=== PATIENT | male | born 1940 | race Caucasian/White ===

== ENCOUNTER 2016-10-30 20:14 | Observation (INO) | payer OTHER, MEDICARE ==
[~2016-10-30] VITALS: Ht 165.1 cm; Wt 90.7 kg
--- NOTE | 2016-10-30 20:20 | NUR ---
PT TO TRIAGE WITH C/O MIDSTERNAL CHEST PAIN 5/10, LIGHTHEADEDNESS, UNABLE TO TAKE DEEP BREATHS SINCE 3PM. [facility] MD CHATA AT BEDSIDE FOR PT EVAL.
--- NOTE | 2016-10-30 20:26 | ED CARDIAC/CP/PALPITATIONS ---
History of Present Illness General Chief Complaint: Chest Pain Stated Complaint: CHEST PAIN, JAW PAIN X FEW HRS Source: patient, family Exam Limitations: no limitations Vital Signs & Intake/Output Vital Signs & Intake/Output Vital Signs Date Time Temp Pulse Resp B/P Pulse O2 O2 Flow FiO2 Ox Delivery Rate 10/30 2314 99.2 84 18 127/55 96 Room Air Room Air 10/30 2045 95 Room Air Room Air 10/30 2044 92 18 113/57 95 Room Air Room Air 10/31 2031 99.5 90 20 119/65 96 Room Air Allergies Coded Allergies: No Known Allergies (10/30/16) Reconcile Medications Amlodipine Besylate 2.5 MG TABLET 1 TAB PO DAILY BP (Reported) Aspirin (Ecotrin*) 81 MG TABLET.DR 1 TAB PO DAILY HEART/BLOOD (Reported) Atorvastatin Calcium 20 MG TABLET 1 TAB PO DAILY CHOLESTEROL (Reported) Metoprolol Tartrate 25 MG TABLET 1 TAB PO BID HEART/BP (Reported) Oxycodone HCl 10 MG TABLET 1 TAB PO BID PRN PAIN (Reported) Pantoprazole Sodium 40 MG TABLET.DR 1 TAB PO DAILY GI (Reported) Tamsulosin HCl 0.4 MG CAP.ER.24H 1 CAP PO DAILY (Reported) Triage Nurses Notes Reviewed? yes Onset: Gradual Duration: hour(s):, waxing and waning Timing: recent history Quality/Severity: moderate Location: central Radiation: jaw Activities at Onset: none Prior Chest Pain/Card Workup: heart attack Modifying Factors: Improves With: rest. Aspirin Today: no aspirin today Associated Symptoms: dizziness HPI: 76yo h/o [place] 15 years ago, presents with sub sternal chest pressure, 10/10, began while at home around 3- 4pm, radiating to his jaw, associated with mild dizziness. He notes that upon arrival to the ED, his chest pain is 5/10, associated with shortness of breath. He notes no weakness, chills, fever, cough, wheezing. He is otherwise well. Past History Travel History Traveled to [place] past 21 day No Medical History Any Pertinent Medical History? see below for history Cardiovascular: hypertension, hyperlipidemia, "heart attack" - 2001 Surgical History Surgical History: none Family History Hx Contributory? No Review of Systems Review of Systems Constitutional: Reports: no symptoms. EENTM: Reports: no symptoms. Respiratory: Reports: no symptoms. Cardiovascular: Reports: no symptoms. GI: Reports: no symptoms. Genitourinary: Reports: no symptoms. Musculoskeletal: Reports: no symptoms. Skin: Reports: no symptoms. Neurological/Psychological: Reports: no symptoms. Hematologic/Endocrine: Reports: no symptoms. Immunologic/Allergic: Reports: no symptoms. All Other Systems: Reviewed and Negative Physical Exam Physical Exam General Appearance: well developed/nourished, mild distress Head: atraumatic, normal appearance Eyes: Bilateral: normal appearance. Ears, Nose, Throat: normal pharynx, normal ENT inspection Neck: normal inspection, supple, full range of motion Respiratory: normal breath sounds, chest non-tender, no respiratory distress, quiet respiration, lungs clear Cardiovascular: regular rate/rhythm Gastrointestinal: normal bowel sounds, soft, non-tender, no organomegaly Back: normal inspection, normal range of motion Extremities: normal inspection, normal capillary refill, normal range of motion, no edema Neurologic/Psych: no motor/sensory deficits, awake, alert, oriented x 3 Reflexes: 1+: bicep (R), bicep (L), knee (R), knee (L). Skin: intact, normal color, warm/dry Core Measures ACS in differential dx? Yes ASA ordered for poss ACS? Yes-ordered Severe Sepsis Present: Yes Septic Shock Present: No Progress Differential Diagnosis: AMI, pulmonary embolism, unstable angina Plan of Care: Orders Procedure Date/time Status Nothing by Mouth 10/31 B Active Patient Data 10/30 2148 Active Saline Lock 10/[address] in observation 10/30 2145 Active Misc Message 10/30 2145 Active ED Holding Orders 10/30 2145 Active Vital Signs 10/30 2145 Active Code Status 10/30 2145 Active Intake & Output 10/30 2044 Active TROPONIN LEVEL 10/30 2025 Complete PARTIAL THROMBOPLASTIN TIME 10/30 2025 Complete PROTHROMBIN TIME 10/30 2025 Complete D-DIMER 10/30 2025 Complete COMPREHENSIVE METABOLIC PANEL 10/30 2025 Complete CBC WITHOUT DIFFERENTIAL 10/30 2025 Complete EKG 10/30 2014 Active Laboratory Tests 10/30/162033: Anion Gap 16, Estimated GFR > 60, BUN/Creatinine Ratio 14.4, Glucose 157 H, Calcium 9.2, Total Bilirubin 0.5, AST 17, ALT 36, Alkaline Phosphatase 117, Troponin I < 0.01, Total Protein 6.6, Albumin 3.8, Globulin 2.8, Albumin/ Globulin Ratio 1.4, PT 11.2, INR 1.07, APTT 32, D-Dimer 510 H, CBC w Diff NO MAN DIFF REQ, RBC 4.34 L, MCV 90.9, MCH 31.1 H, RDW 12.8, MPV 9.1, Gran % 80.1 H, Lymphocytes % 9.9 L, Monocytes % 8.5, Eosinophils % 1.0, Basophils % 0.5, Absolute Granulocytes 10.1 H, Absolute Lymphocytes 1.3, Absolute Monocytes 1.1 H, Absolute Eosinophils 0.1, Absolute Basophils 0.1, PUBS MCHC 34.2 Diagnostic Imaging: Viewed by Me: Radiology Read, CT Scan. Discussed w/RAD: Radiology Read, CT Scan. Radiology Impression: chest angio... no pe, no dissection... full report below. CXR Impression: no airspace consolidation Initial ED EKG: normal axis, normal intervals, normal p-waves, normal QRS complex, normal sinus rhythm Comments: PATIENT: MÓNICA EISENBERG PRESENT AGE: 76 PATIENT ACCOUNT NO: [id number] : 42 LOCATION: [facility] ORDERING PHYSICIAN: FRANCOISE DELEON MD SERVICE DATE: 10/30/16 EXAM TYPE: CAT - CTA CHEST-PULMONARY EMBOLISM EXAMINATION: CT ANGIOGRAM OF THE CHEST WITH CONTRAST (CT PULMONARY ANGIOGRAM FOR PE) CLINICAL INFORMATION: chest pain, elevated d-dimer COMPARISON: None TECHNIQUE: Multidetector volumetric imaging was performed from the thoracic inlet to below the diaphragms following the administration of 20 mL Optiray 350 intravenous contrast. No contrast reaction reported. Sagittal, coronal, and MIP oblique sagittal reformatted images were obtained on the CT workstation, uploaded to PACS, and reviewed. Total exam dose-length product 530.48 mGy-cm. FINDINGS: QUALITY OF STUDY/CONTRAST BOLUS: Suboptimal PULMONARY ARTERIES: Normal diameter of pulmonary arteries. There is no filling defect within the central or first segmental branches of the pulmonary arteries to suggest pulmonary emboli. Evaluation of distal segmental branches is limited due to low concentration of contrast. THORACIC AORTA: The ascending thoracic aorta measures 3.7 cm in transverse diameter. The descending transverse aorta measures 2.9 cm in transverse diameter. Atherosclerotic calcifications of aortic arch noted. No CT evidence of aortic dissection. LUNG: Lungs are clear without focal consolidation, suspicious nodules or masses. PLEURA: No pleural effusion or pneumothorax. MEDIASTINUM: Normal heart size. Atherosclerotic calcifications of the left main coronary artery noted. No pericardial effusion. No hilar or mediastinal lymphadenopathy. No evidence of septal bowing or right heart strain. CHEST WALL/AXILLA: No axillary or internal mammary lymphadenopathy. OSSEOUS STRUCTURES: No acute or suspicious osseous abnormality. UPPER ABDOMEN: A small hiatal hernia present. Prior cholecystectomy, otherwise unremarkable. No reflux of contrast into the hepatic veins to suggest elevated right heart pressures. IMPRESSION: No CT evidence of PE or thoracic aortic dissection. Atherosclerosis and coronary artery disease. Hiatal hernia. VTE: negative DICTATED BY: JAMES FIGUEREDO MD DATE/TIME DICTATED:10/30/162250 GEOTECHNICAL ENGINEERING TECHNICIAN:GENEVA DATE/TIME TRANSCRIBED:10/30/162250 CONFIDENTIAL, DO NOT COPY WITHOUT APPROPRIATE AUTHORIZATION. <Electronically signed in Other Vendor System> SIGNED BY: JAMES FIGUEREDO MD 10/30/16 8110 PATIENT: MÓNICA EISENBERG PRESENT AGE: 76 PATIENT ACCOUNT NO: [id number] : 42 LOCATION: [facility] ORDERING PHYSICIAN: FRANCOISE DELEON MD SERVICE DATE: 10/30/16-2025 EXAM TYPE: RAD - XRY-PORTABLE CHEST XRAY EXAMINATION: XR PORTABLE CHEST CLINICAL INFORMATION: Chest pain. COMPARISON: Chest radiographs dated 10/17/2006. TECHNIQUE: Portable AP view of the chest was obtained. FINDINGS: No airspace consolidation. No pleural effusion or pneumothorax. No cardiac mediastinal silhouette enlargement. No abnormal soft tissue calcification. IMPRESSION: No airspace consolidation. DICTATED BY: FREDDY OLIVEIRA MD DATE/TIME DICTATED:10/30/162055 GEOTECHNICAL ENGINEERING TECHNICIAN:GENEVA DATE/TIME TRANSCRIBED:10/30/162055 CONFIDENTIAL, DO NOT COPY WITHOUT APPROPRIATE AUTHORIZATION. <Electronically signed in Other Vendor System> SIGNED BY: FREDDY OLIVEIRA MD 2100 Departure Departure Disposition: STILL A PATIENT Condition: Stable Clinical Impression Primary Impression: Unstable angina Referrals: IRA JUNG,LEBRON Bhat (PCP/Family) Departure Forms: Customer Survey General Discharge Information Comments 10/30/16, 949pm... discussed with dr. corrigan, cards Observation Note Spoke With: SANJUANA JUNG[facility] Physician Advisor Notified: JASBIR JUNG,MIKA Escobar Place Patient In: Non-ED OBS Care Area Rationale for Observation: My rational for observation is as follows . pt with chest pain, consistent with unstable angina in context of multiple risk factors. Pt to be placed in observation for serial troponins, monitoring, cards evaluation... discussed with dr. corrigan. Critical Care Note Critical Care Note Critical Care Time: 30-74 min
[2016-10-30] MEDS ORDERED: AMLODIPINE BES2.5 M1 PO (20:32)
[2016-10-30] MEDS ORDERED: PANTOPRAZOLE SO40 M1 PO (20:32)
[2016-10-30] MEDS ORDERED: ATORVASTATIN CA20 M1 PO (20:33)
[2016-10-30] MEDS ORDERED: ASPIRIN EC81 M1 PO (20:33)
[2016-10-30] MEDS ORDERED: TAMSULOSIN HCL0.4 M1 PO (20:33)
[2016-10-30] MEDS ORDERED: OXYCODONE HCL10 M2 PO (20:33)
[2016-10-30] MEDS ORDERED: METOPROLOL TART25 M1 PO (20:33)
--- NOTE | 2016-10-30 20:36 | NUR ---
PT SEEN BY DR DELEON IN EKG [place]. TO ROOM 12 ON STRETCHER. PCXR IN PROGRESS.
[2016-10-30 20:41] LABS: ABSOLUTE BASOPHIL COUNT 0.1 /CUMM (0.0-0.2); ABSOLUTE EOSINOPHIL COUNT 0.1 /CUMM (0.0-0.7); ABSOLUTE GRANULOCYTE CT 10.1 /CUMM (1.4-6.5); ABSOLUTE LYMPH COUNT 1.3 /CUMM (1.2-3.4); ABSOLUTE MONOCYTE COUNT 1.1 /CUMM (0.10-0.60); BASOPHIL % 0.5 % (0.0-2.0); GRANULOCYTE % 80.1 % (42.2-75.2); HEMATOCRIT 39.4 % (42-52); MEAN CORPUSCULAR HGB 31.1 PG (27.0-31.0); MEAN CORPUSCULAR HGB CONC 34.2 G/DL (33.0-37.0); MEAN CORPUSCULAR VOLUME 90.9 FL (80.0-94.0); MEAN PLATELET VOLUME 9.1 FL (7.4-10.4); PLATELET COUNT 173 /CUMM (130-400); RBC DISTRIBUTION WIDTH 12.8 % (11.5-14.5); RED BLOOD CELL CT 4.34 /CUMM (4.70-6.10); WHITE BLOOD CELL COUNT 12.7 /CUMM (4.8-10.8)
--- NOTE | 2016-10-30 20:43 | NUR ---
APPRECIATE TRIAGE NOTE. PT DIRECTLY TO ROOM 12, MEDICATED WITH SL NITRO AND ASA 325MG. PT SNR IN THE 90'S WITH OCCASIONAL PVC'S. PT REPORTS PAIN DECREASED TO 3-4 AT THIS TIME. NURSING WILL CONTINUE TO MONITOR.
[2016-10-30 20:50] LABS: PT 11.2 SEC (9.4-12.5); PTT 32 SEC (25-37)
--- NOTE | 2016-10-30 21:01 | RADIOLOGY REPORT ---
EXAMINATION: XR PORTABLE CHEST CLINICAL INFORMATION: Chest pain. COMPARISON: Chest radiographs dated 10/17/2006. TECHNIQUE: Portable AP view of the chest was obtained. FINDINGS: No airspace consolidation. No pleural effusion or pneumothorax. No cardiac mediastinal silhouette enlargement. No abnormal soft tissue calcification. IMPRESSION: No airspace consolidation.
--- NOTE | 2016-10-30 21:35 | NUR ---
DR. BARTON TO BEDSIDE TO DISCUSS RESULTS AND POC. IV ESTABLISHED TO TO [facility] FOR CTA.
--- NOTE | 2016-10-30 22:34 | NUR ---
PT BED ASSIGNMENT 179-2
--- NOTE | 2016-10-30 22:54 | NUR ---
REPORT CALLED TO [facility]OTH. PER [employer] PAINT TRIMMER FROM FLOOR CAN TRANSPORT PT AFTER VITALS ARE COMPLETED ON FLOOR.
--- NOTE | 2016-10-30 23:09 | CT SCAN REPORT ---
EXAMINATION: CT ANGIOGRAM OF THE CHEST WITH CONTRAST (CT PULMONARY ANGIOGRAM FOR PE) CLINICAL INFORMATION: chest pain, elevated d-dimer COMPARISON: None TECHNIQUE: Multidetector volumetric imaging was performed from the thoracic inlet to below the diaphragms following the administration of 20 mL Optiray 350 intravenous contrast. No contrast reaction reported. Sagittal, coronal, and MIP oblique sagittal reformatted images were obtained on the CT workstation, uploaded to PACS, and reviewed. Total exam dose-length product 530.48 mGy-cm. FINDINGS: QUALITY OF STUDY/CONTRAST BOLUS: Suboptimal PULMONARY ARTERIES: Normal diameter of pulmonary arteries. There is no filling defect within the central or first segmental branches of the pulmonary arteries to suggest pulmonary emboli. Evaluation of distal segmental branches is limited due to low concentration of contrast. THORACIC AORTA: The ascending thoracic aorta measures 3.7 cm in transverse diameter. The descending transverse aorta measures 2.9 cm in transverse diameter. Atherosclerotic calcifications of aortic arch noted. No CT evidence of aortic dissection. LUNG: Lungs are clear without focal consolidation, suspicious nodules or masses. PLEURA: No pleural effusion or pneumothorax. MEDIASTINUM: Normal heart size. Atherosclerotic calcifications of the left main coronary artery noted. No pericardial effusion. No hilar or mediastinal lymphadenopathy. No evidence of septal bowing or right heart strain. CHEST WALL/AXILLA: No axillary or internal mammary lymphadenopathy. OSSEOUS STRUCTURES: No acute or suspicious osseous abnormality. UPPER ABDOMEN: A small hiatal hernia present. Prior cholecystectomy, otherwise unremarkable. No reflux of contrast into the hepatic veins to suggest elevated right heart pressures. IMPRESSION: No CT evidence of PE or thoracic aortic dissection. Atherosclerosis and coronary artery disease. Hiatal hernia. VTE: negative
--- NOTE | 2016-10-30 23:34 | History & Physical ---
VENKAT JUNG,ALETHA 10/30/16 2321: General Information and HPI MD Statement: I have seen and personally examined MÓNICA EISENBERG and documented this H&P. The patient is a 76 year old M who presented with a patient stated chief complaint of []. Source of Information: patient, family, old records Exam Limitations: no limitations History of Present Illness: Patient is a 76-year-old male significant past medical history of BPH, hypertension, hyperlipidemia, CO (2001) presented with chief complaints of chest pain. Chest pain was 10/10, started at 3 -4 PM,intermittent, gradually progressive, located in the center of the chest and was radiating to jaw, improved at rest, increased by taking the deep breathing and associated with nasal congestion and dizziness. He took 4-5 tab of aspirin today. He was also complaining of cough which is mild without and expectoration. He recently started on the CPAP around 2 weeks ago. He was also complaining of shortness of breath, especially on. He had an accident 3 years ago and after that it was fixed by the plate and now on oxycodone. He frequently have episodes of dizziness and tingling and numbness in both hands. Denies fever, chills, headache, abdominal pain, weakness in any part of the body. PMH - laparoscopic cholecystectomy, cardiac catheterization (1999)-which was normal, Personal Hx -alcohol-5-6 drinks, especially on the weekends, uses all kind of drinks, smoking-1-2 cigarettes per day,started at the age of 16. Family history-father had bypass grafting. Allergies/Medications Allergies: Coded Allergies: No Known Allergies (10/30/16) Home Med list Amlodipine Besylate 2.5 MG TABLET 1 TAB PO DAILY BP (Reported) Aspirin (Ecotrin*) 81 MG TABLET. 1 TAB PO DAILY HEART/BLOOD (Reported) Atorvastatin Calcium 80 MG TABLET 80 MG PO 1700 hyperlipidemia Cyanocobalamin (Vitamin B-12) 1,000 MCG TABLET 1,000 MCG PO DAILY Supplement Ergocalciferol (Vitamin D2) (Vitamin D2) 50,000 UNIT CAPSULE 50,000 IU PO QMON low vit D Metoprolol Tartrate 25 MG TABLET 1 TAB PO BID HEART/BP (Reported) Multivitamin (One Daily Multivitamin) 1 EACH TABLET 1 TAB PO DAILY supplement Omeprazole 20 MG CAPSULE. 40 MG PO BID GERD Oxycodone HCl 10 MG TABLET 1 TAB PO BID PRN PAIN (Reported) Tamsulosin HCl 0.4 MG CAP.ER.24H 1 CAP PO DAILY (Reported) Past History Travel History Traveled to [place] past 21 day No Medical History Cardiovascular: hypertension, hyperlipidemia, "heart attack" - 2001 Surgical History Surgical History: none Past Family/Social History Psychosocial History Smoking Status: Current Everyday Smoker ETOH Use: alcoholic Illicit Drug Use: denies illicit drug use Review of Systems Review of Systems Constitutional: Denies: chills, diaphoresis, fever, malaise, weakness. EENTM: Reports: throat pain, tooth pain. Cardiovascular: Reports: chest pain, peripheral edema. Denies: edema, orthopena, palpitations. Respiratory: Reports: cough, short of breath. Denies: hemoptysis, orthopnea, sputum production, stridor, wheezing. GI: Denies: abdominal pain, bloating, constipation, diarrhea, distention. Genitourinary: Denies: no symptoms. Musculoskeletal: Reports: back pain, neck pain. Skin: Denies: no symptoms. Neurological/Psychological: Denies: anxiety, depressed. Exam & Diagnostic Data Last 24 Hrs of Vital Signs/I&O Vital Signs Date Time Temp Pulse Resp B/P Pulse O2 O2 Flow FiO2 Ox Delivery Rate 10/30 2350 98.7 74 20 100/40 95 Room Air 10/30 2315 99.2 84 18 127/55 96 Room Air Room Air 10/30 2045 95 Room Air Room Air 10/30 2044 92 18 113/57 95 Room Air Room Air 10/31 2031 99.5 90 20 119/65 96 Room Air Intake & Output 10/31 0800 10/31 0000 10/30 1600 Intake Total Output Total Balance Patient 90.718 kg Weight Physical Exam General Appearance Alert, Oriented X3, Cooperative, No Acute Distress Skin No Rashes, No Breakdown Cardiovascular Normal S1, Normal S2 Lungs Clear to Auscultation, Normal Air Movement Abdomen Soft, No Tenderness Neurological Normal Speech Extremities No Clubbing, No Cyanosis, 1+ pitting edema Vascular Normal Pulses, Pulses Symmetrical Last 24 Hrs of Labs/Danish: Laboratory Tests 10/31/16219: Troponin I < 0.01 10/31/16219: Anion Gap 9, Estimated GFR > 60, BUN/Creatinine Ratio 17.5, Vitamin B12 Pending, 25-OH Vitamin D Total Pending, TSH Pending, Free T4 Pending, CBC w Diff NO MAN DIFF REQ, RBC 3.96 L, MCV 91.6, MCH 31.0, RDW 12.4, MPV 8.9, Gran % 65.8, Lymphocytes % 17.4 L, Monocytes % 15.0 H, Eosinophils % 1.4, Basophils % 0.4, Absolute Granulocytes 6.2, Absolute Lymphocytes 1.6, Absolute Monocytes 1.4 H, Absolute Eosinophils 0.1, Absolute Basophils 0, PUBS MCHC 33.8 10/30/162033: Anion Gap 16, Estimated GFR > 60, BUN/Creatinine Ratio 14.4, Glucose 157 H, Hemoglobin A1c Pending, Calcium 9.2, Iron 42 L, TIBC 310, Ferritin 116.0, Total Bilirubin 0.5, AST 17, ALT 36, Alkaline Phosphatase 117, Troponin I < 0.01, Total Protein 6.6, Albumin 3.8, Globulin 2.8, Albumin/Globulin Ratio 1.4, PT 11.2, INR 1.07, APTT 32, D-Dimer 510 H, CBC w Diff NO MAN DIFF REQ, RBC 4.34 L , MCV 90.9, MCH 31.1 H, RDW 12.8, MPV 9.1, Gran % 80.1 H, Lymphocytes % 9.9 L , Monocytes % 8.5, Eosinophils % 1.0, Basophils % 0.5, Absolute Granulocytes 10.1 H, Absolute Lymphocytes 1.3, Absolute Monocytes 1.1 H, Absolute Eosinophils 0.1, Absolute Basophils 0.1, PUBS MCHC 34.2 Diagnostic Data EKG Results Normal sinus rhythm CXR Results Bibasilar atelectasis. Assessment/Plan Assessment: Vital signs at the time of admission-temperature 99.5, pulse 90, respiratory rate 20, blood pressure 119/65, SPO2 96% on room air Pertinent labs-hemoglobin 13.5, hematocrit 39.4, granulocyte 80.1, glucose 157, k-3.9, d-dimer 510 Chest x-ray-no any acute cardiopulmonary abnormality CTA -no evidence of PE, aortic dissection Allergies - NKDA Plan - Chest pain, probably Acute coronary syndrome under evaluation * We will admit the patient to telemetry floor * We will do serial EKGs and troponins and follow the trends * We will place a consult of cardiology/Dr. Duncan in the morning and follow the recommendation * Follow-up echocardiogram Hypertension * We'll continue home medication including amlodipine, metoprolol, Hyperlipidemia * We'll continue tablet atorvastatin 20mg PO OD * Low fat diet BPH * We'll continue Tamsulosin Hiatal hernia -GERD * We will continue omeprazole * We will advise to follow-up with conference services coordinator as an outpatient Diet-heart healthy diet DVT prophylaxis-ALP S/haperin CODE STATUS-full code As Ranked By This Provider Problem List: 1. Chest pain in adult 2. Coronary artery disease 3. GERD (gastroesophageal reflux disease) 4. Hiatal hernia Core Measures/Miscellaneous Acute Coronary Syndrome ACS Diagnosis: No Cerebrovascular Accident CVA/TIA Diagnosis: No Congestive Heart Failure CHF Diagnosis: No Venous Thromboembolism VTE Risk Factors: Age > 40, Obesity [facility] prophylaxis d/t: No contraindications No VTE Pharm Prophylaxis d/t: No contraindications VTE Diagnosis: No VTE Type: NONE VTE Confirmed by (Test): NONE Severe Sepsis Severe Sepsis Present: Yes Septic Shock Septic Shock Present: No Miscellaneous Documentation Attending Case Discussed With: JORGE WEI MD Primary Care Physician: LEBRNO ROTH MD Patient sees these Specialists Dr. Duncan vp corporate development Level of Patient Care: Telemetry SAMMY MURRAY 10/30/16 2338: Resident Review Statement Resident Statement: examined this patient, discussed with recruiting internship, agreed with recruiting internship, discussed with family, reviewed EMR data (avail), discussed with nursing , discussed with case mgmt, reviewed images, amended to note Other Findings: 80-year-old male with a past medical history of benign prostatic hyperplasia, GERD, hypertension, hyperlipidemia, and had an abnormal stress test back in 1999 and subsequently had an angiogram that was negative for any obstructive coronary artery disease presented to the hospital with chief complaint of chest pain that started at around 3 PM this afternoon while he was having lunch. According to the patient she's been having intermittent episodes of this chest discomfort however not severe to the intensity where he would grade it as a 10 out of 10. He states that the pain started and has epigastric area and radiated up towards his throat. He also endorses some lightheadedness and states that the pain is worse when he takes a deep breath. Of note his shoulder was also painful and he had a sore throat. The symptoms started while he was having this afternoon. He also endorses coughing which is normal for him but denies any recent upper respiratory tract infection, fever, chills. Of note he recently saw Dr. Packer and was started on a CPAP about 2 weeks ago because he was found to have obstructive sleep apnea. He does endorse shortness of breath on exertion but denies any chest pain, dizziness, lightheadedness, palpitations, chest pain. He also endorses congestion and was prescribed a nasal spray and is due to see ENT on the of this month. Of note he. With Dr. Duncan and had an stress test done recently about 6 months ago which was normal he is a smoker as well as alcohol user, drinking about 5-6 beers/ alcohol. vodka every weekend and smokes 1-2 cigarettes every day and has been doing so since the age of 16 years. He stopped smoking and drinking for a period of 47 years a nd had a couple of beers this afternoon. His family history significant for a bypass surgery in his father when he was in his 60s. He denies any allergies to medications. Patient states that she took about 4 baby aspirins and was given nitroglycerin in the ER which helped subside the pain a little bit but he continues to experience pain in his throat and chest with a deep breath. Vitals at the time of admission blood pressure 127/55, pulse 84, respiratory rate 18, MAXIMUM TEMPERATURE 99.2. On physical exam he is alert and oriented 3 and in no acute distress lying comfortably in bed. HEENT revealed PERRLA, moist mucous membranes. Examination of the neck revealed no JVD of 5 cm, no cervical lymphadenopathy. Cardiovascular exam was pertinent for normal S1, S2, no murmurs appreciated. Chest was clear to auscultation bilaterally. Abdominal exam is benign abdomen soft, nontender, nondistended with normal bowel sounds in all 4 quadrants. Examination of the lower extremities did not reveal any edema. Neuro exam was grossly unremarkable. Labs pertinent for leukocytosis with a white blood cell count of 12,700, H&H of 13.5/39.4 and MCV 90.9 with a platelet count of 1 73,000. Serum chemistries revealed sodium of 141, potassium 3.9, BUN 13, creatinine 0.9, bicarbonate of 22. Serum glucose elevated to 157 and serum calcium of 9.2. LFTs unremarkable with an AST/ALT of 17/36 and a total bili of 0.5 with an alkaline phosphatase of 117. First set of troponin negative at less than 0.01. INR was 1.07 with a d- dimer of 510. EKG revealed: NSR, HR: 85, PVC's, ?LAD, QTc: 424 Chest x-ray revealed no airspace consolidation, pleural effusion or pneumothorax within normal cardia mediastinal silhouette. CTA was done which ruled out pulmonary embolism or thoracic aortic dissection. It did show evidence of atherosclerosis and coronary artery disease as well as a hiatal hernia. In the ER he received aspirin 325 mg 1, nitroglycerin 0.4 mg sublingual 1 as well as his nitroglycerin topical patch. Assessment and plan Place on telemetry under observation to rule out ACS. #Atypical chest pain Most likely secondary to GERD versus acute coronary syndrome Rule out ACS with troponins and EKG at 2 AM and 7 AM. Echocardiogram if one did not not done recently Please Place cardiology consult with Dr. Duncan in a.m. Continue on aspirin 81 mg daily Lipid panel in AM #Hypertension Continue on metoprolol 25 mg twice a day by mouth, aspirin 2.5 mg daily #Impaired gylcemia - Check HbA1C # Anemia - 2/2 iron deficiency versus B12 deficiency - Check iron studies, Vitmain B12. #Hyperlipidemia Continue on Lipitor 20 mg at bedtime Follow-up lipid panel in a.m. #GERD Start him on Prilosec 40 mg twice a day by mouth #BPH Continue on Flomax 0.4 mg daily - DVT prophylaxis Heparin 5000 international units 3 times a day subcutaneous - Diet Heart Healthy - CODE STATUS Full code SANJUANA JUNG, [facility] 10/31/16 0001: Attending MD Review Statement Attending Statement Attending MD Statement: examined this patient, discuss w/resident/PA/GROUND MIXER, agreed w/resident/PA/GROUND MIXER, reviewed EMR data (avail) Attending Assessment/Plan: 76 yo M with h/o chronic low back pain, ANDRA on CPAP, HLD, HTN, GERD, abnormal stress test (1999) followed by normal coronaries on cardiac cath but 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 He feels the nitro might have helped, but he still feels the discomfort. He has had intermittent episodes unclear if on exertion or at rest. He follows Dr. Duncan, had recent stress test that was negative. Patient continues to smoke and consume alcohol 1-2 beers daily and 5-6 over weekend. He reports giving up alcohol and smoking for past 47 days (gave up for lent) but resumed these today on . Please note patient has a h/o GERD/ hiatal hernia (EGD 2003), was advised to take PPI twice daily but he cut it down to once daily as he did not follow up with the GI doctors. VSS. Exam unremarkable. Labs: WBC 12.7, glucose 157, trop neg. D-dimer elevated. EKG: SR with PVCs. CXR: no consolidation. CTA: no PE or dissection. Atherosclerosis and CAD. Hiatal hernia. 1. Chest pain seems most likely GI related or musculoskeletal. No evidence of PE. Tele 23 Obs, rule out ACS, Cardio consult, hold off on echo and obtain outpatient stress test/echo results. Continue aspirin, metoprolol, statin. Apply nitropaste Q6. Check lipid panel, TSH, free T4, HbA1c. Continue PPI twice daily. 2. Leukocytosis likely reactive. DVT ppx Lovenox. Full code.
[2016-10-30 23:50] VITALS: BP 100/40
[2016-10-31 02:48] LABS: ABSOLUTE BASOPHIL COUNT 0 /CUMM (0.0-0.2); ABSOLUTE EOSINOPHIL COUNT 0.1 /CUMM (0.0-0.7); ABSOLUTE GRANULOCYTE CT 6.2 /CUMM (1.4-6.5); ABSOLUTE LYMPH COUNT 1.6 /CUMM (1.2-3.4); ABSOLUTE MONOCYTE COUNT 1.4 /CUMM (0.10-0.60); BASOPHIL % 0.4 % (0.0-2.0); EOSINOPHIL % 1.4 % (0-5); GRANULOCYTE % 65.8 % (42.2-75.2); HEMATOCRIT 36.3 % (42-52); MEAN CORPUSCULAR HGB CONC 33.8 G/DL (33.0-37.0); MEAN CORPUSCULAR VOLUME 91.6 FL (80.0-94.0); MEAN PLATELET VOLUME 8.9 FL (7.4-10.4); PLATELET COUNT 148 /CUMM (130-400); RBC DISTRIBUTION WIDTH 12.4 % (11.5-14.5); RED BLOOD CELL CT 3.96 /CUMM (4.70-6.10); WHITE BLOOD CELL COUNT 9.5 /CUMM (4.8-10.8)
--- NOTE | 2016-10-31 07:31 | PN- Housestaff ---
BRANDON JUNG,[facility] 10/31/16 0731: Subjective Follow-up For: 1. Chest pain 2. Leukocytosis 3. NSVT Tele-Events Since Last Visit: 11 beat run of Marco tach at 2:50 AM PVCs and PACs Otherwise normal sinus rhythm between 65-73 Subjective: The patient continues to report chest pain which she describes as burning, 4 out of 10 when he is laying flat, increases to 10 over 10 when he turns too well his right side, 7/10 when he turns to cover his left side. Also reported chest pain when he takes a deep breath. Does not report any radiation of the pain. No associated palpitations, shortness of breath, fever or chills. However he does report shortness of breath medical satting a lot not upon getting out of bed or walking. Denies nausea or vomiting. Review of Systems Constitutional: Reports: see HPI. Cardiovascular: Reports: see HPI, chest pain. Denies: orthopena, palpitations, peripheral edema. Respiratory: Reports: no symptoms. Gastrointestinal: Denies: constipation, diarrhea, nausea, vomiting. Genitourinary: Reports: no symptoms. Musculoskeletal: Reports: no symptoms. Objective Last 24 Hrs of Vital Signs/I&O Vital Signs Date Time Temp Pulse Resp B/P Pulse O2 O2 Flow FiO2 Ox Delivery Rate 10/31 0849 98.1 80 18 104/60 95 Room Air 10/31 0800 Room Air 10/30 2350 98.7 74 20 100/40 95 Room Air 10/30 2315 99.2 84 18 127/55 96 Room Air Room Air 10/30 2046 95 Room Air Room Air 10/30 2045 92 18 113/57 95 Room Air Room Air 10/30 2032 99.5 90 20 119/65 96 Room Air Intake & Output 10/31 1600 10/31 0800 10/31 0000 Intake Total 130 Output Total Balance 130 Intake, IV 10 Intake, Oral 120 Patient 200 lb Weight Physical Exam General Appearance: Alert, Oriented X3, Cooperative, No Acute Distress Neck: Supple, No JVD Lymphatic: Cervical nl Cardiovascular: Regular Rate, Normal S1, Normal S2, No Murmurs Lungs: Clear to Auscultation, Normal Air Movement Abdomen: Normal Bowel Sounds, Soft, No Tenderness, No Hepatospenomegaly Neurological: Normal Speech, Strength at 5/5 X4 Ext, Normal Tone, Sensation Intact, Cranial Nerves 3-12 NL Extremities: No Edema, Normal Pulses Vascular: Pulses Symmetrical Current Medications: Current Medications Sig/Elías Start time Last Medication Dose Route Stop Time Status Admin Acetaminophen 650 MG Q6P PRN 10/31 0030 AC PO Acetaminophen 0 .STK-MED ONE 10/306 DC IV Acetaminophen 1,000 MG ONCE ONE 10/30 2144 DC 10/30 N/A 1 UNIT IV 10/30 2159 2314 Amlodipine Besylate 2.5 MG DAILY 10/31 1000 AC PO Aspirin 0 .STK-MED ONE 10/30 2036 DC PO Aspirin 325 MG ONCE ONE 10/30 2030 DC 10/30 PO 10/30 2030 204 Aspirin Buffered 81 MG DAILY 10/31 1000 AC PO Atorvastatin Calcium 20 MG 1700 10/31 1700 DC PO Atorvastatin Calcium 80 MG 1700 10/31 1700 AC PO Heparin Sodium 5,000 UNIT Q8 10/31 0030 AC (Porcine) SC Ibuprofen 600 MG Q6P PRN 10/31 0030 AC PO Melatonin 5 MG AT BEDTIME 10/31 0045 AC 10/31 PO 0041 Metoprolol Tartrate 25 MG BID 10/31 1000 AC PO Multivitamins 1 TAB DAILY 10/31 1000 AC PO Nitroglycerin 0 .STK-MED ONE 10/30 2305 DC TOP Nitroglycerin 1 GM ONCE ONE 10/30 2144 DC 10/30 TOP 10/30 2145 231 Nitroglycerin 0.4 MG ONCE ONE 10/30 2030 DC 10/30 SL 10/30 Omeprazole 40 MG BID 10/31 0033 AC PO Oxycodone/ 2 TAB Q6P PRN 10/31 0030 AC 10/31 Acetaminophen PO 0728 Tamsulosin HCl 0.4 MG DAILY 10/31 1000 AC PO Last 24 Hrs of Lab/Danish Results Last 24 Hrs of Labs/Mics: Laboratory Tests 10/31/16219: Troponin I < 0.01 10/31/16219: Anion Gap 9, Estimated GFR > 60, BUN/Creatinine Ratio 17.5, Vitamin B12 Pending, 25-OH Vitamin D Total Pending, TSH 0.757, Free T4 0.99, CBC w Diff NO MAN DIFF REQ, RBC 3.96 L, MCV 91.6, MCH 31.0, RDW 12.4, MPV 8.9, Gran % 65.8, Lymphocytes % 17.4 L, Monocytes % 15.0 H, Eosinophils % 1.4, Basophils % 0.4, Absolute Granulocytes 6.2, Absolute Lymphocytes 1.6, Absolute Monocytes 1.4 H, Absolute Eosinophils 0.1, Absolute Basophils 0, PUBS MCHC 33.8 10/30/162033: Anion Gap 16, Estimated GFR > 60, BUN/Creatinine Ratio 14.4, Glucose 157 H, Hemoglobin A1c Pending, Calcium 9.2, Iron 42 L, TIBC 310, Ferritin 116.0, Total Bilirubin 0.5, AST 17, ALT 36, Alkaline Phosphatase 117, Troponin I < 0.01, Total Protein 6.6, Albumin 3.8, Globulin 2.8, Albumin/Globulin Ratio 1.4, PT 11.2, INR 1.07, APTT 32, D-Dimer 510 H, CBC w Diff NO MAN DIFF REQ, RBC 4.34 L , MCV 90.9, MCH 31.1 H, RDW 12.8, MPV 9.1, Gran % 80.1 H, Lymphocytes % 9.9 L , Monocytes % 8.5, Eosinophils % 1.0, Basophils % 0.5, Absolute Granulocytes 10.1 H, Absolute Lymphocytes 1.3, Absolute Monocytes 1.1 H, Absolute Eosinophils 0.1, Absolute Basophils 0.1, PUBS MCHC 34.2 Orders ECHO Findings: Normal global left ventricular size, wall thickness, systolic function with no obvious regional wall motion abnormalities. Left ventricular ejection fraction is estimated at > 55 %. Assessment/Plan Assessment: 76-year-old man with a past medical history of chronic low back pain, obstructive sleep apnea on CPAP, hypertension hyperlipidemia, GERD, abnormal stress test in 1999 followed by normal coronaries on cardiac cath but evidence of dilated cardiomyopathy secondary to alcohol use, a stress test 6 months ago which was negative at as reported by the patient, presented with substernal chest pain radiating to the jaw. Remained chest pain-free most night but has chest pain ranging from 4-10, associated with breathing and position. Off note the patient has a hiatal hernia and history of GERD, was supposed to take PPIs twice a day but he stopped taking them and take some one today. He also had extra beer over the weekend. He was placed in observation to telemetry floor for further management. Assessment and plan: 1. Chest pain: - Patient presented with chest pain which is substernal, initially was radiating to the jaw, right now no radiation, gets worse with inspiration, and position, not associated with exertion, initially got better with nitrates but continues to have pain, resolved with food. His pain is atypical, likely GERD versus musculoskeletal - troponins x 3, have been negative - EKG showed normal sinus rhythm at [address]-T wave changes - CTA negative for PE - T6 0.757, free T4 0.9 and, vitamin B12 is low to 35 - Lipid panel: Chol 112, TG 90, LDL 59, HDL 35 - Stress test 6 months ago that was negative, follows Dr. Duncan as an outpatient - We'll continue with aspirin, metoprolol, atorvastatin - We'll also continue on PPIs - ECHO essentially normal with normal global left ventricular size, wall thickness, systolic function with no obvious regional wall motion abnormalities. EF > 55 %. - Patient has to be evaluated by cardiology. The patient remained stable and cardiology standpoint he may be discharged today - Patient also had an episode of NSVT with 11 beats of V tach at 2 am, but he has a history on Holter monitor in the past. Rachelletes WNL. 2. Leukocytosis: - 12.7 on admission, no bands, no signs of infection - CXR negative - Likely reactive - 9.5 in the morning, no need for antibiotics 3. History of hypertension: - Blood pressure 104/16 the morning - We'll continue with metoprolol 25 mg by mouth daily 4. Hyperlipidemia: - Patient is atorvastatin 20 mg at home - We'll increase to atorvastatin 80 mg at home because of ASCVD score of 18.1% 5. History of GERD/hiatal hernia: - The patient has history of GERD, was supposed to be on twice a day PPIs as per GI but he has not been taking them regularly and takes only once a day PPI - He also has a history of alcohol abuse but did not drink in the past for 7 days however reported drinking over the er weekend which could be adding to the retrosternal burning chest pain - We'll continue with omeprazole 40 mg twice a day 6. History of BPH: - Continue Flomax 7. Heart healthy diet 9. When necessary Tylenol and Percocet as needed for pain 10. Subcutaneous heparin for DVT prophylaxis 11. Full CODE STATUS Problem List: 1. Chest pain in adult 2. GERD (gastroesophageal reflux disease) 3. Hiatal hernia Pain Ratin Pain Location: Chest pain Pain Goal: Remain pain free Pain Plan: Sublingual nitrate PPI Tylenol Oxycodone Tomorrow's Labs & Rationales: Not needed DVT/Prophylaxis: pharmacological Consulting Request: Consulting Specialty: Cardiology Consulting Physician: Dr. Duncan Reason for Consult: chest pain Discharge Plan Discharge Disposition: home Anticipated Discharge (Day): today If Discharged Today/In 24 Hrs: enter antc discharge ord, CMR done AFUA HUGHES MD 10/31/16 1329: Attending MD Review Statement Attending Statement Attending MD Statement: examined this patient, discuss w/resident/PA/BALCONY WORKER, agreed w/resident/PA/BALCONY WORKER, reviewed EMR data (avail) Attending Assessment/Plan: 76M PMH chronic low back pain, obstructive sleep apnea on CPAP, hypertension hyperlipidemia, GERD, CAD on telemetry for observation of positional chest pain. Patient reports pain started yesterday after a large meal, mid-sternal, pressure like, radiating to the mouth and teeth, non-exertional, associated with mild shortness of breath. Pain was constant and present all night, worse when lying on his right side and better when lying on his back. Patient had breakfast this morning and pain suddenly resolved. Had <10 beat run of NSVT this morning. Per cardiology, patient has a history of NSVT seen on Holter monitor in the past. Given presentation and history, suspect patient's hiatal hernia has been exacerbated and GERD is likely cause of his pain Plan - Stable for discharge home - Omeprazole 40mg BID - Continue home medications - Outpatient GI and cardiology follow up
[2016-10-31 08:49] VITALS: BP 104/60
--- NOTE | 2016-10-31 09:47 | Patient Discharge Instructions ---
Discharge Instructions General Discharge Information You were seen/treated for: 1. Chest pain You had these procedures: ECHO Special Instructions: 1. Please follow-up with primary care physician of discharge 2. Please follow-up with Dr. Duncan after discharge 3. Continue with all medications as prescribed Diet Recommended Diet: Heart Healthy, Low Fat Activity Full Activity/No Limits: Yes Acute Coronary Syndrome Inclusion Criteria At DC or during hospital stay patient has or had the following: ACS DIAGNOSIS No Discharge Core Measures Meds if any: Prescribed or Continued at Discharge Meds if any: NOT Prescribed or Continued at Discharge Congestive Heart Failure Inclusion Criteria At DC or during hospital stay patient has or had the following: CHF DIAGNOSIS No Discharge Core Measures Meds if any: Prescribed or Continued at Discharge Meds if any: NOT Prescribed or Continued at Discharge Cerebrovascular accident Inclusion Criteria At DC or during hospital stay patient has or had the following: CVA/TIA Diagnosis No Discharge Core Measures Meds if any: Prescribed or Continued at Discharge Meds if any: NOT Prescribed or Continued at Discharge Venous thromboembolism Inclusion Criteria VTE Diagnosis No VTE Type NONE VTE Confirmed by (Test) NONE Discharge Core Measures - Per Current guidelines, there needs to be overlap - treatment for the first 5 days of Warfarin therapy. - If discharged on Warfarin prior to 5 days of - overlap therapy, the patient will need to be - assessed for post discharge needs including - *Post discharge parental anticoagulation - *Warfarin and/or parental anticoagulation education - *Follow up date to check INR post discharge At least 5 days overlap therapy as Inpatient No Meds if any: Prescribed or Continued at Discharge Note: Overlap Therapy is Warfarin and Anticoagulant Meds if any: NOT Prescribed or Continued at Discharge
[2016-10-31] MEDS ORDERED: ONE DAILY MULT1 EAC2 PO (09:49)
[2016-10-31] MEDS ORDERED: OMEPRAZOLE20 M2 PO (09:49)
[2016-10-31] MEDS ORDERED: ATORVASTATIN CA80 M1 PO (09:49)
[2016-10-31] MEDS ORDERED: VITAMIN B-121000 MC3 PO (09:49)
[2016-10-31 10:32] VITALS: BP 104/60
--- NOTE | 2016-10-31 12:03 | Cons- Cardiology ---
General Information and HPI Consulting Request Date of Consult: 10/31/16 Requested By: SANJUANA JUNG,LOREEALAKSHMI Reason for Consult: Chest pain Source of Information: patient, family, old records History of Present Illness: This is a pleasant 76-year-old male with a past medical history of remote myocardial infarction, reported many years ago with nonobstructive coronary artery disease, BPH, hypertension, sleep apnea, and high density asymptomatic ventricular ectopy who presents to [facility] with a chief complaint of moderate intensity of midsternal chest pain that occurred at rest and was not associated with diaphoresis, nausea, dyspnea. He notes that the pain was made worse when taking a deep breath and rolling onto his right side. The pain was constant overnight but resolved after eating breakfast this morning. There was no exertional component. She did undergo a CTA to rule out pulmonary embolism due to the pleuritic nature of the pain. During my interview with the patient he was comfortable with no residual symptoms. Reports no change in her exertional tolerance recently. He did undergo a nuclear stress test in our office in July which showed evidence of the prior myocardial infarction with no reversible deficits. He denies any recent viral syndrome. Denies orthopnea or paroxysmal nocturnal dyspnea. Allergies/Medications Allergies: Coded Allergies: No Known Allergies (10/30/16) Home Med List: Amlodipine Besylate 2.5 MG TABLET 1 TAB PO DAILY BP (Reported) Aspirin (Ecotrin*) 81 MG TABLET.DR 1 TAB PO DAILY HEART/BLOOD (Reported) Atorvastatin Calcium 20 MG TABLET 1 TAB PO DAILY CHOLESTEROL (Reported) Atorvastatin Calcium 80 MG TABLET 80 MG PO 1700 hyperlipidemia Cyanocobalamin (Vitamin B-12) 1,000 MCG TABLET 1,000 MCG PO DAILY Supplement Metoprolol Tartrate 25 MG TABLET 1 TAB PO BID HEART/BP (Reported) Multivitamin (One Daily Multivitamin) 1 EACH TABLET 1 TAB PO DAILY supplement Omeprazole 20 MG CAPSULE.DR 40 MG PO BID GERD Oxycodone HCl 10 MG TABLET 1 TAB PO BID PRN PAIN (Reported) Pantoprazole Sodium 40 MG TABLET.DR 1 TAB PO DAILY GI (Reported) Tamsulosin HCl 0.4 MG CAP.ER.24H 1 CAP PO DAILY (Reported) Current Medications: Current Medications Sig/Elías Start time Last Medication Dose Route Stop Time Status Admin Acetaminophen 650 MG Q6P PRN 10/31 0030 AC PO Acetaminophen 0 .STK-MED ONE 10/30 2305 DC IV Acetaminophen 1,000 MG ONCE ONE 10/30 2145 DC 10/30 N/A 1 UNIT IV 10/30 2159 231 Amlodipine Besylate 2.5 MG DAILY 10/31 1000 AC 10/31 PO 1031 Aspirin 0 .STK-MED ONE 10/30 2036 DC PO Aspirin 325 MG ONCE ONE 10/30 2030 DC 10/30 PO 10/30 2030 204 Aspirin Buffered 81 MG DAILY 10/31 1000 AC 10/31 PO 1031 Atorvastatin Calcium 20 MG 1700 10/31 1700 DC PO Atorvastatin Calcium 80 MG 1700 10/31 1700 AC PO Cyanocobalamin 1,000 MCG DAILY 10/31 1000 AC 10/31 PO 1031 Ergocalciferol 50,000 IU QMON 10/31 1200 AC PO Heparin Sodium 5,000 UNIT Q8 10/31 0030 AC (Porcine) SC Ibuprofen 600 MG Q6P PRN 10/31 0030 DC PO Melatonin 5 MG AT BEDTIME 10/31 0045 AC 10/31 PO 0041 Metoprolol Tartrate 25 MG BID 10/31 1000 AC 10/31 PO 1032 Multivitamins 1 TAB DAILY 10/31 1000 AC 10/31 PO 1031 Nitroglycerin 0 .STK-MED ONE 10/30 2305 DC TOP Nitroglycerin 1 GM ONCE ONE 10/30 2144 DC 10/30 TOP 10/30 2145 231 Nitroglycerin 0.4 MG ONCE ONE 10/30 2030 DC 10/30 SL 10/30 Omeprazole 40 MG BID 10/31 0033 AC 10/31 PO 1031 Oxycodone/ 2 TAB Q6P PRN 10/31 0030 AC 10/31 Acetaminophen PO 0728 Tamsulosin HCl 0.4 MG DAILY 10/31 1000 AC 10/31 PO 1031 Review of Systems Review of Systems: Review of systems as per HPI. The remainder of a 10 point review of systems was reviewed and was otherwise negative. Past History Travel History Traveled to [place] past 21 day No Medical History Blood Transfusion Hx: No Neurological: NONE EENT: NONE Cardiovascular: hypertension, hyperlipidemia, "heart attack" - 2001 Respiratory: obstructive sleep apnea, CPAP Gastrointestinal: NONE Hepatic: NONE Renal: benign prost hyperplasia Musculoskeletal: NONE Psychiatric: NONE Endocrine: NONE Blood Disorders: NONE Cancer(s): NONE RISK CONTROL SPECIALIST/Reproductive: NONE Surgical History Surgical History: 1 Psychosocial History Smoking Status: Current Everyday Smoker ETOH Use: alcoholic Illicit Drug Use: denies illicit drug use Exam & Diagnostic Data Vital Signs and I&O Vital Signs Date Time Temp Pulse Resp B/P Pulse O2 O2 Flow FiO2 Ox Delivery Rate 10/31 1032 80 104/60 10/31 1031 80 104/60 10/31 1031 80 104/60 10/31 0849 98.1 80 18 104/60 95 Room Air 10/31 0800 Room Air 10/30 2350 98.7 74 20 100/40 95 Room Air 10/30 2315 99.2 84 18 127/55 96 Room Air Room Air 10/30 2046 95 Room Air Room Air 10/30 2045 92 18 113/57 95 Room Air Room Air 10/30 2032 99.5 90 20 119/65 96 Room Air Intake & Output 10/31 1600 10/31 0800 10/31 0000 10/30 1600 10/30 0800 10/30 0000 Intake Total 130 Output Total Balance 130 Intake, IV 10 Intake, Oral 120 Patient 200 lb Weight Physical Exam: General: no apparent distress. Alert. Eyes: No obvious scleral icterus. HEENT: No jugular venous distention or abnormal jugular venous pulsations. Cardiovascular: Normal intensity S1/S2. PMI not grossly displaced. Respiratory: Lungs clear to auscultation bilaterally. Abdomen: Soft, nontender with no guarding or rebound tenderness. Musculoskeletal: No clubbing or cyanosis noted Skin: No obvious rashes or ulcerations. Neurologic: No gross focal deficits noted. Lymph: No gross lymphadenopathy. Labs/Danish Results: Laboratory Tests 10/31 10/31 10/31 0850 0220 0220 Chemistry Sodium (137 - 145 mmol/L) 140 Potassium (3.5 - 5.1 mmol/L) 3.8 Chloride (98 - 107 mmol/L) 104 Carbon Dioxide (22 - 30 mmol/L) 26 Anion Gap (5 - 16) 9 BUN (9 - 20 mg/dL) 14 Creatinine (0.7 - 1.2 mg/dL) 0.8 Estimated GFR (>60 ml/min) > 60 BUN/Creatinine Ratio (7 - 25 %) 17.5 Troponin I (<0.11 ng/ml) < 0.01 < 0.01 Triglycerides (<150 mg/dL) 90 Cholesterol (< 200 MG/DL) 112 LDL Cholesterol, Calc (65 - 129 mg/dL) 59 L HDL Cholesterol (40 - 60 mg/dL) 35 L Cholesterol/HDL Ratio (0.00 - 4.88 %) 3 Vitamin B12 (239 - 931 pg/mL) 235 L 25-OH Vitamin D Total (30 - 100 ng/ml) 9.6 L TSH (0.270 - 4.200 uIU/mL) 0.757 Free T4 (0.78 - 2.44 ng/dL) 0.99 Hematology CBC w Diff NO MAN DIFF REQ WBC (4.8 - 10.8 /CUMM) 9.5 RBC (4.70 - 6.10 /CUMM) 3.96 L Hgb (14.0 - 18.0 G/DL) 12.3 L Hct (42 - 52 %) 36.3 L MCV (80.0 - 94.0 FL) 91.6 MCH (27.0 - 31.0 PG) 31.0 RDW (11.5 - 14.5 %) 12.4 Plt Count (130 - 400 /CUMM) 148 MPV (7.4 - 10.4 FL) 8.9 Gran % (42.2 - 75.2 %) 65.8 Lymphocytes % (20.5 - 51.1 %) 17.4 L Monocytes % (1.7 - 9.3 %) 15.0 H Eosinophils % (0 - 5 %) 1.4 Basophils % (0.0 - 2.0 %) 0.4 Absolute Granulocytes (1.4 - 6.5 /CUMM) 6.2 Absolute Lymphocytes (1.2 - 3.4 /CUMM) 1.6 Absolute Monocytes (0.10 - 0.60 /CUMM) 1.4 H Absolute Eosinophils (0.0 - 0.7 /CUMM) 0.1 Absolute Basophils (0.0 - 0.2 /CUMM) 0 PUBS MCHC (33.0 - 37.0 G/DL) 33.8 10/30 2033 Chemistry Sodium (137 - 145 mmol/L) 141 Potassium (3.5 - 5.1 mmol/L) 3.9 Chloride (98 - 107 mmol/L) 103 Carbon Dioxide (22 - 30 mmol/L) 22 Anion Gap (5 - 16) 16 BUN (9 - 20 mg/dL) 13 Creatinine (0.7 - 1.2 mg/dL) 0.9 Estimated GFR (>60 ml/min) > 60 BUN/Creatinine Ratio (7 - 25 %) 14.4 Glucose (65 - 99 mg/dL) 157 H Hemoglobin A1c (4.2 - 5.8 %) 6.0 H Calcium (8.4 - 10.2 mg/dL) 9.2 Iron (49 - 181 ug/dL) 42 L TIBC (261 - 462 ug/dL) 310 Ferritin (17.9 - 464 ng/mL) 116.0 Total Bilirubin (0.2 - 1.3 mg/dL) 0.5 AST (17 - 59 U/L) 17 ALT (21 - 72 U/L) 36 Alkaline Phosphatase (< 127 U/L) 117 Troponin I (<0.11 ng/ml) < 0.01 Total Protein (6.3 - 8.2 g/dL) 6.6 Albumin (3.5 - 5.0 g/dL) 3.8 Globulin (1.9 - 4.2 gm/dL) 2.8 Albumin/Globulin Ratio (1.1 - 2.2 %) 1.4 Coagulation PT (9.4 - 12.5 SEC) 11.2 INR (0.90 - 1.17) 1.07 APTT (25 - 37 SEC) 32 D-Dimer (70 - 232 ng/ml) 510 H Hematology CBC w Diff NO MAN DIFF REQ WBC (4.8 - 10.8 /CUMM) 12.7 H RBC (4.70 - 6.10 /CUMM) 4.34 L Hgb (14.0 - 18.0 G/DL) 13.5 L Hct (42 - 52 %) 39.4 L MCV (80.0 - 94.0 FL) 90.9 MCH (27.0 - 31.0 PG) 31.1 H RDW (11.5 - 14.5 %) 12.8 Plt Count (130 - 400 /CUMM) 173 MPV (7.4 - 10.4 FL) 9.1 Gran % (42.2 - 75.2 %) 80.1 H Lymphocytes % (20.5 - 51.1 %) 9.9 L Monocytes % (1.7 - 9.3 %) 8.5 Eosinophils % (0 - 5 %) 1.0 Basophils % (0.0 - 2.0 %) 0.5 Absolute Granulocytes (1.4 - 6.5 /CUMM) 10.1 H Absolute Lymphocytes (1.2 - 3.4 /CUMM) 1.3 Absolute Monocytes (0.10 - 0.60 /CUMM) 1.1 H Absolute Eosinophils (0.0 - 0.7 /CUMM) 0.1 Absolute Basophils (0.0 - 0.2 /CUMM) 0.1 PUBS MCHC (33.0 - 37.0 G/DL) 34.2 Diagnostic Data EKG Results Tracing personally reviewed shows sinus rhythm at 74 bpm with PVCs and old inferior wall PR CXR Results No CHF or pneumonia Other Results CTA No CT evidence of PE or thoracic aortic dissection. Atherosclerosis and coronary artery disease. Hiatal hernia. Telemetry tracings were personally reviewed and shows sinus rhythm with a short wide complex run Assessment/Plan Assessment/Plan 1. Chest pain with a positional component and also was relieved after eating breakfast, possibly GI in nature given the hiatal hernia 2. Remote history of myocardial infarction with no reversible deficits on recent nuclear stress test 3. Known high density ventricular ectopy, asymptomatic with no history of PVC induced cardiomyopathy 4. Sleep apnea 5. Hypertension 6. BPH The patient's chest discomfort is atypical for cardiac etiology and was relieved after eating breakfast this morning. Pulmonary embolism/aortic dissection were excluded by CTA. He does have a hiatal hernia. EKG shows evidence of the old inferior myocardial infarction but otherwise no ischemic changes. Also has chronic/known high density ventricular ectopy and should be maintained on his beta jane. Serial troponins remain within normal limits. Nuclear stress test earlier this year showed no evidence of reversible ischemia. Will follow-up the results of the echocardiogram but if no obvious regional wall motion abnormalities or pericardial effusion I believe the patient can be discharged from a cardiac standpoint to follow-up in our office within one week of discharge. He should return immediately to the hospital via 911 with any new or worsening symptoms. Shalom Nazario MD [facility] Consult Acknowledgment - Thank you for your consult request.
[2016-10-31] MEDS ORDERED: VITAMIN D250000 UNIT PO (13:11)
--- NOTE | 2016-10-31 15:04 | ECHOCARDIOGRAM REPORT ---
MÓNICA EISENBERG Age: 76 : 1940 Gender: M Exam Date: 10/31/2016 10:54 Exam Location: 1 [address] Ht (in): 65 Wt (lb): 200 BSA: 2.07 BP: 100 / 40 Ordering Physician: SAMMY MURRAY MD Referring Physician: SAMMY MURRAY MD Technologist: Kris Narayan [facility] Room Number: 179-2 Indications: CHEST PAIN Rhythm: Technical Quality: Fair FINDINGS Left Ventricle Normal global left ventricular size, wall thickness, systolic function with no obvious regional wall motion abnormalities. Left ventricular ejection fraction is estimated at > 55 %. Right Ventricle Normal right ventricular size and function. Right Atrium Normal right atrial size. Left Atrium Mild left atrial dilatation. Mitral Valve Structurally normal mitral valve. No mitral stenosis. Trace mitral regurgitation. Aortic Valve Trileaflet aortic valve. No aortic stenosis. Tricuspid Valve Structurally normal tricuspid valve. Trace to mild tricuspid regurgitation. Right ventricular systolic pressure estimated at 34 mmHg. Pulmonic Valve Pulmonic valve not well visualized, grossly normal. Pericardium No pericardial effusion. Echo free space anterior to the right ventricle likely represents a fat pad. Great Vessels Normal size aortic root. CONCLUSIONS Normal global left ventricular size, wall thickness, systolic function with no obvious regional wall motion abnormalities. Left ventricular ejection fraction is estimated at > 55 %. Normal right ventricular size and function. Mild left atrial dilatation. Right ventricular systolic pressure estimated at 34 mmHg. No pericardial effusion. Matt Nazario M.D. (Electronically Signed) Final Date: 31 October 2016 15:03 MEASUREMENTS (Male / Female) Normal Values 2D ECHO LV Diastolic Diameter PLAX 5.5 cm 4.2 - 5.9 / 3.9 - 5.3 cm LV Systolic Diameter PLAX 4.3 cm 2.1 - 4.0 cm LV Fractional Shortening PLAX 21.8 % 25 - 46 % LV Ejection Fraction 2D Teich 43.7 % IVS Diastolic Thickness 0.9 cm LVPW Diastolic Thickness 1.1 cm LV Relative Wall Thickness 0.4 RV Internal Dim ED PLAX 3.3 cm 1.9 - 3.8 cm LVOT Diameter 1.8 cm Aortic Root Diameter 3.0 cm LA Systolic Diameter LX 3.8 cm 3.0 - 4.0 / 2.7 - 3.8 cm LA Volume 70.0 cm 18 - 58 / 22 - 52 cm Ascending Aorta Diameter 3.3 cm DOPPLER AV Peak Velocity 175.0 cm/s AV Peak Gradient 12.3 mmHg AV Mean Velocity 120.0 cm/s AV Mean Gradient 7.0 mmHg AV Velocity Time Integral 36.7 cm LVOT Peak Velocity 95.5 cm/s LVOT Peak Gradient 3.6 mmHg LVOT Mean Velocity 54.2 cm/s LVOT Mean Gradient 1.0 mmHg LVOT Velocity Time Integral 24.1 cm LVOT Stroke Volume 61.3 cm AV Area Cont Eq vti 1.7 cm AV Area Cont Eq pk 1.4 cm MV Peak Velocity 132.0 cm/s MV Peak Gradient 7.0 mmHg MV Mean Velocity 64.0 cm/s MV Mean Gradient 2.0 mmHg Mitral E Point Velocity 93.8 cm/s Mitral A Point Velocity 109.0 cm/s Mitral E to A Ratio 0.9 MV PHT Velocity 113.0 cm/s MV Deceleration [place] 600.0 cm/s MV Pressure Half Time 56.5 ms MV Area PHT 3.9 cm MV Deceleration Time 377.0 ms TR Peak Velocity 270.0 cm/s TR Peak Gradient 29.2 mmHg Right Atrial Pressure 5.0 mmHg Pulmonary Artery Systolic Pressu 34.2 mmHg Right Ventricular Systolic Press 34.2 mmHg PV Peak Velocity 91.0 cm/s PV Peak Gradient 3.3 mmHg PV Mean Velocity 68.9 cm/s PV Mean Gradient 2.0 mmHg PV Velocity Time Integral 21.0 cm LV E' Lateral Velocity 10.1 cm/s Mitral E to LV E' Lateral Ratio 9.3 LV E' Septal Velocity 7.2 cm/s Mitral E to LV E' Septal Ratio 13.0
== END 2016-10-31 13:58 ==
LOC: ENRESERVDT → ENRESERVTM → ERH 20:14 → ENPENDDIS 21:46 → 1NO 21:46 → ERHI 21:46 → 1NO 23:28
PROVIDERS: Internal Medicine Infectious Disease; Pediatrics; ADMIT Student in an Organized Health Care Education/Training Program
DX: R07.9 Chest pain, unspecified (principal); N40.0 Benign prostatic hyperplasia without lower urinary tract symptoms; I10 Essential (primary) hypertension; E78.5 Hyperlipidemia, unspecified; I25.10 Atherosclerotic heart disease of native coronary artery without angina pectoris; F17.200 Nicotine dependence, unspecified, uncomplicated; K21.9 Gastro-esophageal reflux disease without esophagitis; G47.33 Obstructive sleep apnea (adult) (pediatric); D72.829 Elevated white blood cell count, unspecified; D50.9 Iron deficiency anemia, unspecified; D51.9 Vitamin B12 deficiency anemia, unspecified
CPT/HCPCS: 6020; 36415; 82436; 93005; 93010; 93306; 96374; G0378; J0131; J1644

== ENCOUNTER → 2017-11-02 | Day surgery (SDC) | payer OTHER, MEDICARE ==
[~2017-11-02] MED LIST: AMLODIPINE BES2.5 M1 PO; ASPIRIN EC81 M1 PO; ATORVASTATIN CA20 M1 PO; ATORVASTATIN CA80 M1 PO; LIPITOR40 M1 PO; METOPROLOL TART25 M1 PO; OMEPRAZOLE20 M2 PO; ONE DAILY MULT1 EAC2 PO; OXYCODONE HCL10 M2 PO; PANTOPRAZOLE SO40 M1 PO; TAMSULOSIN HCL0.4 M1 PO; VITAMIN B-121000 MC3 PO; VITAMIN D250000 UNIT PO; VITAMIN D32000 UNIT PO
--- NOTE | 2017-11-02 11:57 | Operative Report ---
Operative/Inv Procedure Report Surgery Date: 11/02/17 Name of Procedure: Cataract extraction with intraocular lens implantation left eye Pre-Operative Diagnosis: Age-related cataract left eye Post-Operative Diagnosis: Same Estimated Blood Loss: none Surgeon/Block Placer: Dominik JUNG,Kennedy Escobar Anesthesia: local monitored anesthesi Complications: None Operative/Procedure Note Note: Preoperatively the patient was noted to have 20/40 vision in the left eye with a decrease with glare testing down to 20/60. The risks, benefits, and alternatives to surgery were discussed at length with the patient. Informed consent was obtained. The patient was brought to the operating room where the left eye was prepped and draped in the normal sterile fashion. A speculum was placed on the left eye with good exposure. The axis of the limbal relaxing incision was marked. Using a racquel blade at 600 depth, an incision spanning 35 degrees was made without complication. A limbal relaxing incision of equal length and depth was made 180 away. A stab incision was made using a paracentesis blade. Intracameral lidocaine was placed. Viscoelastic was used to form the anterior chamber. A clear corneal incision was made using keratome blade. A continuous curvilinear capsulorrhexis was made using a cystotome needle followed by Utrata forceps. There was no extension of the rhexis. Hydrodissection was performed using balanced salt solution. The cataract was removed using a stop and chop technique. Residual cortex was removed using coaxial irrigation and aspiration. The capsule was polished using irrigation and aspiration and the posterior capsule was cleaned using a balanced salt solution jet. There was no residual lens material inside the eye. The capsular bag was reformed using viscoelastic. An intraocular lens PCBOO of power 22.5 was verified and confirmed. It was loaded into an injector and injected into the eye. The lens was placed entirely within the capsular bag. Viscoelastic was evacuated using irrigation and aspiration. The wounds were stromally hydrated and the eye filled to physiologic pressure using balanced salt solution. Intracameral cefuroxime was placed. Speculum was removed and a shield was placed on the eye. The patient was brought to the recovery area without incident. Instructions were given to follow-up the next day for routine postoperative care.
== END ==
LOC: STS 02:51
DX: H25.9 Unspecified age-related cataract (principal); I10 Essential (primary) hypertension; G47.33 Obstructive sleep apnea (adult) (pediatric); K21.9 Gastro-esophageal reflux disease without esophagitis
CPT/HCPCS: J2250; V2632

== ENCOUNTER → 2017-12-07 | Day surgery (SDC) | payer OTHER, MEDICARE ==
[~2017-12-07] VITALS: Ht 165.1 cm; Wt 90.7 kg
--- NOTE | 2017-12-07 09:04 | Operative Report ---
Operative/Inv Procedure Report Surgery Date: 12/07/17 Name of Procedure: Cataract extraction with intraocular lens implantation right eye Pre-Operative Diagnosis: Age-related cataract right eye Post-Operative Diagnosis: Same Estimated Blood Loss: none Surgeon/Visual C Developer: Dominik JUNG,Kennedy Escobar Anesthesia: local monitored anesthesi Complications: None Operative/Procedure Note Note: Preoperatively the patient was noted to have 20/30 vision in the right eye with a decrease with glare testing down to 20/50. The risks, benefits, and alternatives to surgery were discussed at length with the patient. Informed consent was obtained. The patient was brought to the operating room where the right eye was prepped and draped in the normal sterile fashion. A speculum was placed on the right eye with good exposure. A stab incision was made using a paracentesis blade. Intracameral lidocaine was placed. Viscoelastic was used to form the anterior chamber. A clear corneal incision was made using keratome blade. A continuous curvilinear capsulorrhexis was made using a cystotome needle followed by Utrata forceps. There was no extension of the rhexis. Hydrodissection was performed using balanced salt solution. The cataract was removed using a stop and chop technique. Residual cortex was removed using coaxial irrigation and aspiration. The capsule was polished using irrigation and aspiration and the posterior capsule was cleaned using a balanced salt solution jet. There was no residual lens material inside the eye. The capsular bag was reformed using viscoelastic. An intraocular lens PCBOO of power 23.0 was verified and confirmed. It was loaded into an injector and injected into the eye. The lens was placed entirely within the capsular bag. Viscoelastic was evacuated using irrigation and aspiration. The wounds were stromally hydrated and the eye filled to physiologic pressure using balanced salt solution. Intracameral cefuroxime was placed. Speculum was removed and a shield was placed on the eye. The patient was brought to the recovery area without incident. Instructions were given to follow-up the next day for routine postoperative care.
== END ==
LOC: STS 01:42
DX: H25.9 Unspecified age-related cataract (principal); I10 Essential (primary) hypertension; G47.33 Obstructive sleep apnea (adult) (pediatric); K21.9 Gastro-esophageal reflux disease without esophagitis
CPT/HCPCS: J2250; V2632